=== PATIENT | male | born 1940 | race Caucasian/White ===

== ENCOUNTER → 2024-10-20 | Outpatient (CLI) | payer MEDICARE, SELFPAY | END | disposition home or self-care (01) | PROVIDERS: Referring Provider Nurse Practitioner Family; Visit Provider Nurse Practitioner Family | DX: N39.0 Urinary tract infection, site not specified (principal) | CPT/HCPCS: 87086 ==

== ENCOUNTER 2025-04-30 09:15 | Day surgery (SDC) | payer MEDICARE, MEDICAID, SELFPAY ==
--- NOTE | 2025-04-27 10:01 | EKG_ITS ---
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
[2025-04-27 10:54] VITALS: BMI 26.4
--- NOTE | 2025-04-27 11:55 | SUR.PREOP ---
Pt came in with trasport, pt did not remember much of his health history, stated lives alone and does not have family close.
[2025-04-27 12:07] LABS: Collection Type, Urine Clean Catch
[2025-04-27 12:25] LABS: Basophils % (Auto) 1 % (0-2.5); Eosinophils # (Auto) 0.1 Thou/mm3 (0.0-0.5); Eosinophils % (Auto) 3 % (0-10); Hematocrit 43.5 % (41.0-53.0); Immature Granulocytes % (Auto) 1 % (0-0); Immature Granulocytes Auto 0.03 Thou/mm3 (0.00-0.00); Lymphocytes # (Auto) 0.8 Thou/mm3 (1.0-4.8); Lymphocytes % (Auto) 16 % (10-50); Mean Corpuscular HGB Conc 34.5 g/dl (31.0-37.0); Mean Corpuscular Hemoglobin 32.3 pg (25.0-35.0); Mean Corpuscular Volume 94 fL (80-100); Monocytes # (Auto) 0.4 Thou/mm3 (0.0-0.8); Monocytes % (Auto) 8 % (0-12); Neutrophils # (Auto) 3.8 Thou/mm3 (1.8-7.7); Neutrophils % (Auto) 72 % (37-80); Nucleated Red Blood Cell % 0 /100 WBC (0); Platelet Count 187 Thou/mm3 (140-440); RDW Standard Deviation 46.5 fL (35.1-43.9); Red Blood Count 4.65 Miln/mm3 (4.50-5.90); White Blood Count 5.2 Thou/mm3 (3.8-10.6)
[2025-04-27 12:29] LABS: Bacteria,Urine Rare; Bilirubin,Urine Negative (Negative); Blood,Urine 1+ (Negative); Clarity,Urine Clear (Clear/Hazy); Color,Urine Yellow (Lt Yel-Yel); Glucose, Urine Negative (Negative); Hyaline Casts,Urine < 1 /hpf (0-1); Ketones,Urine Negative (Negative); Leukocyte Esterase,Urine Negative (Negative); Nitrite,Urine Negative (Negative); PH,Urine 5.5 (5.0-7.0); Protein,Urine Trace (Neg - Trace); RBC,Urine 6 /hpf (0-3); Specific Gravity,Urine 1.028 (1.001-1.035); Squamous Epithelial Cell,Urine < 1 /hpf (0-5); Urobilinogen,Urine Negative mg/dL (0.0-1.0); WBC,Urine 1 /hpf (0-5)
[2025-04-27 12:55] LABS: Alanine Aminotransferase 10 U/L (10-49); Albumin, Serum 4.5 gm/dL (3.4-4.8); Albumin/Globulin Ratio 1.9 (1.2-2.2); Alkaline Phosphatase 98 U/L (46-116); Anion Gap 8 (7-16); Aspartate Amino Transferase 13 U/L (0-34); BUN/Creatinine Ratio 12 Ratio (12-20); Bilirubin,Total 0.6 mg/dL (0.3-1.2); Blood Urea Nitrogen 14 mg/dL (9-23); Calcium 9.1 mg/dL (8.3-10.6); Calcium (Corrected) 9.1 mg/dL (8.5-10.1); Carbon Dioxide 24.6 mMol/L (20.0-31.0); Chloride 108 mMol/L (98-107); Creatinine (Component) 1.2 mg/dL (0.6-1.3); Estimated Creatinine Clearance 50.3 mL/min (>60); Globulin 2.4 gm/dL (2.3-3.5); Glucose 112 mg/dL (74-106); Osmolality,Calculated 282 (275-295); Potassium 4.4 mMol/L (3.4-5.1); Sodium 141 mMol/L (136-145); Total Protein 6.9 gm/dL (5.7-8.2); eGFR 60 See Note
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
--- NOTE | 2025-04-29 12:37 | SUR.PREOP ---
Pt called me today asking what was he supposed to do tomorrow, I reinforced his education, pt seems to have undiagnosed dementia. Pt has no family locally and lives alone.
[2025-04-30] VITALS (13 sets, daily range): BP systolic 105–140; BP diastolic 65–89; PULSE 62–98; RESP 12–19; TEMP 36.7; O2SAT 93–98; BMI 25.9
--- NOTE | 2025-04-30 10:22 | SUR.PREOP ---
Patient expressed gratitude for prayer before their procedure.
[2025-04-30] MEDS: RINGERS LACTATED 1000 ML 1,000 ML 20 ML IV (10:25)
--- NOTE | 2025-04-30 11:30 | XR_ITS ---
Examination: Transrectal prostate sonography TECHNIQUE: Grayscale transrectal sonographic images of the prostate Date and time: April 30, 2025 1255 hours INDICATIONS: Transrectal prostate images obtained for prostate biopsy by physician FINDINGS: Transrectal prostate sonographic images obtained for prostate biopsies by physician Prostate volume 34.7 cc IMPRESSION: Transrectal prostate sonographic images obtained for prostate biopsy by physician
--- NOTE | 2025-04-30 13:01 | SUR.PHASEII ---
1240: Pt received in [facility] via [facility]. Report from Haley PRETTY and Dr. Lee. Pt groggy, but awake. Resp even, unlabored. VS stable. Denies pain.
--- NOTE | 2025-04-30 13:09 | SUR.PHASEII ---
1305: Pt resting with no complaints voiced. Resp even, unlabored. VS stable. Denies pain. Report to Florina PRETTY.
--- NOTE | 2025-04-30 13:15 | SUR.PHASEII ---
Received report on pt. s/p surgery from Destiny PRETTY. Pt. is resting, AAOx3, VSS, no c/o pain or nausea at this time.
--- NOTE | 2025-04-30 15:44 | SUR.PHASEII ---
1355: Assumed care. Pt awake. VS stable. Sitting up tolerating applesauce with no problems. Transportation called earlier. They stated they were in [place] and would be here approximately at 1500. 1445: Pt has been resting with no complaints voiced. VS stable. Denies pain. Attempted to assist pt to restroom. Pt voided on floor. Pt cleaned up and dressed with assistance. 1515: Transportation available. Pt and friend stated understanding of discharge instructions. Pt discharged from [facility] in stable condition.
--- NOTE | 2025-04-30 17:42 | ESOP_ITS ---
RE: EZRA ABBASI : 1940 DATE OF OPERATION: 04/30/2025 PREOPERATIVE DIAGNOSES: Elevated PSA of 10.78, prostatism, and prostatic obstruction. POSTOPERATIVE DIAGNOSES: Elevated PSA of 10.78, prostatism, and prostatic obstruction. PROCEDURES PERFORMED: Cystoscopy, urethral dilatation, and transrectal prostatic ultrasound with ultrasound-guided prostatic needle biopsy. ANESTHESIA: Monitored anesthesia by Dr. Salinas. INDICATION: The patient is an 85-year-old gentleman with elevated PSA of 10.78 with prostatism. Rectally, he has a mild to moderately enlarged prostate without any hard nodules. He was now brought in for cystoscopy and transrectal prostatic ultrasound with ultrasound- guided prostatic needle biopsy. Planned procedure, risks, and complications have been discussed with the patient. The patient understood them and agreed to proceed. DESCRIPTION OF PROCEDURE: After the patient was brought to the operating table under adequate monitored anesthesia by Dr. Salinas, he was placed in dorsal lithotomy position. Parts were prepped and draped in the usual fashion. Cystoscopy was then carried out in a standard fashion, which revealed adequate urethral meatus, normal-appearing urethra, moderately enlarged bilobed prostate. Residual urine 4 ounces, yellow and clear and was sent for culture and sensitivity examination. There are no intravesical stones or tumors. Ureteral orifices are found to be normal in position and appearance. Scope was withdrawn. The urethra was dilated. The patient was then turned in left lateral position. Using a transrectal approach, prostatic ultrasound was carried out. Volume was measured at 34.7 cm3. Biopsies were obtained from both lobes using ultrasound guidance. The patient tolerated the entire procedure well and left the room in good condition. PLAN: We will wait for the biopsy report. DT: 12:48:54 TT: 17:40:00 Ref: [id number] - TID: [id number]
== END 2025-04-30 15:15 | disposition home or self-care (01) ==
PROVIDERS: Anesthesiology; Referring Provider Surgery; Visit Provider Surgery
PROC: (CPT 55700; principal; 2025-04-30 11:30)
PROC: 0TJB8ZZ Inspection of Bladder, Via Natural or Artificial Opening Endoscopic (ICD-10-PCS; CPT 52000; 2025-04-30 11:30)
DX: N40.1 Benign prostatic hyperplasia with lower urinary tract symptoms (principal); R97.20 Elevated prostate specific antigen [PSA]; Z01.810 Encounter for preprocedural cardiovascular examination
CPT/HCPCS: 52281; 55700; 36415; 76942; 80053; 81001; 85025; 87086; 93005; A4217; A4649; J0694; J2250; J2704; J2795; J3010; J7120